=== PATIENT | female | born 1945 | race Caucasian/White ===

== ENCOUNTER 2019-05-25 10:43 | Outpatient (CLI) | payer MEDICARE ==
--- NOTE | 2019-05-25 14:03 | MRI ---
MRI OF THE LEFT KNEE PERFORMED WITHOUT CONTRAST ENHANCEMENT: 05/25/19 HISTORY: Left knee pain. COMPARISON: A plain film examination done 05/18/19 at orthopedist's office. Anterior as well as posterior cruciate ligaments are intact. The lateral meniscus has a normal shape and appearance. There is minimal free edge blunting to the sivakumar dy of the medial meniscus. Medial and lateral collateral ligaments and iliotibial band regions appear unremarkable. The patellar articular cartilage shows some fairly pronounced articular cartilage loss involving the more superior portions of the medial as well as lateral facets but also moderate articular cartilage loss inferiorly. The medial and lateral patellar retinaculum and quadriceps and patellar tendons are normal. There are three ossified bodies seen along the anterior margin of the lateral compartment of the knee . All of these measure approximately 1 cm in size. One of these appears to have an osteophytic attach ment on the more anterior aspect of the lateral tibial plateau. These are very faintly visualized on the plain film examination. There is some other smaller articular bodies seen. There is minimal thinn ing to the articular cartilage of the lateral femoral condyle. A benign appearing bone cyst incidentally noted within the fibula. IMPRESSION: 1. No evidence of any acute meniscal or cruciate ligament injury. 2. Some prominent ossified body seen along the anterior margin of the lateral tibial plateau. T hese are in the 1 cm size range. 3. Marked arthritic changes of the patellofemoral joint space, also small articular bodies and s mall joint effusion noted. POS: [facility]
== END 2019-05-25 10:44 | disposition home or self-care (01) ==
LOC: TBSIIMAG 10:43
PROVIDERS: ATTEND Orthopaedic Surgery
DX: S83.242A Other tear of medial meniscus, current injury, left knee, initial encounter (principal); M17.12 Unilateral primary osteoarthritis, left knee; M25.462 Effusion, left knee

== ENCOUNTER 2019-06-09 09:32 | Outpatient (CLI) | payer MEDICARE ==
[2019-06-09 12:49] LABS: #Basophils 0.1 thou/uL (0.0-0.2); #Eosinphils 0.3 thou/uL (0.0-0.7); #Monocytes 0.8 thou/uL (0.11-0.59); #Neutrophils 5.8 thou/uL (1.40-6.50); %Basophils 0.8 % (0.0-1.0); %Eosinophils 2.9 % (0.0-10.0); %Lymphocytes 30.1 % (21.0-51.0); %Monocytes 8.4 % (0.0-10.0); %Neutrophils 57.9 % (42.0-75.0); Bacteria/HPF None Seen HPF (None Seen); Bilirubin Negative (Negative); Blood, Urine Negative (Negative); Clarity Clear (Clear); Glucose, Urine (Dipstick) Normal (Negative); Hemoglobin 13.8 g/dL (12.0-16.0); Leukocyte Negative Leu/uL (Negative); Mean Corpuscular HGB CONC 33.2 g/dL (32.0-36.0); Mean Corpuscular Hemoglobin 28.1 pg (27.0-31.0); Mean Corpuscular Volume 84.8 fL (78.0-98.0); Mean Platelet Volume 8.1 fL (7.4-10.4); Nitrite Negative (Negative); Platelet Count 246 thou/uL (130-400); Protein, Urine (Dipstick) Negative (Neg-Trace); RBC Distribution Width 14.5 % (11.5-14.5); RBC/HPF 0-3 HPF (0-3); Red Blood Cell (RBC) Count 4.91 mill/uL (4.20-5.40); Squamous Epithelial 0-3 HPF (0-3); Urobilinogen Normal mg/dL (Less than 2); WBC/HPF 0-3 HPF (0-3)
[2019-06-09 12:59] LABS: Prothrombin Time 12.7 SEC (12.0-14.7)
[2019-06-09 13:08] LABS: Anion Gap 16 mmol/L (10-20); BUN (Urea Nitrogen) 11 mg/dL (9.8-20.1); Calc. Creatinine Clearance 0 mL/min (70-130); Calcium 9.7 mg/dL (7.8-10.44); Carbon Dioxide 30 mmol/L (23-31); Chloride 94 mmol/L (98-107); Estimated GFR-MDRD 62; Glucose 106 mg/dL (83-110); Potassium 3.8 mmol/L (3.5-5.1); Sodium 136 mmol/L (136-145)
--- NOTE | 2019-06-09 17:14 | EKG ---
Test Reason : Blood Pressure : / mmHG Vent. Rate : 071 BPM Atrial Rate : 071 BPM P-R Int : 186 ms QRS Dur : 082 ms QT Int : 402 ms P-R-T Axes : 060 052 062 degrees QTc Int : 436 ms Normal sinus rhythm Normal ECG No previous ECGs available Confirmed by DR. Mary Jo DHALIWAL ([id number]) on 06/09/2019 5:13:55 PM Referred By: CARLOS MANUEL Confirmed By:DR. Mary Jo DHALIWAL
== END 2019-06-09 09:33 | disposition home or self-care (01) ==
LOC: LABBT 09:32
PROVIDERS: ATTEND Orthopaedic Surgery
DX: Z01.818 Encounter for other preprocedural examination (principal); M17.12 Unilateral primary osteoarthritis, left knee
CPT/HCPCS: 80048; 81001; 85025; 85610; 87081; 93005; 93010

== ENCOUNTER 2019-06-21 06:35 | Inpatient (IN) | payer MEDICARE ==
[2019-06-09 09:46] VITALS: BMI 36.7
[2019-06-21] MEDS ORDERED: Levofloxacin 500 mg/D5W 100 ml Premix Bag ONE (07:43)
[2019-06-21] MEDS ORDERED: Tranexamic Acid 1,000 MG/10 ML VIAL ONE (07:43)
[2019-06-21] MEDS ORDERED: Sodium Chloride 0.9% 100 ML ONE (07:43)
[2019-06-21] MEDS ORDERED: Vancomycin HCl 1.5 GM in Sodium Chloride 0.9% 250 ML 300 ML IVPB SCH (07:45)
[2019-06-21] MEDS ORDERED: Fentanyl 100 MCG/2 ML VIAL ONE ×2 (08:29→09:27)
[2019-06-21] MEDS ORDERED: Midazolam HCl 2 mg/2 ml Vial ONE (08:29)
[2019-06-21] MEDS ORDERED: traMADol HCl 50 MG TAB PO PRN ×2 (09:17→09:23)
[2019-06-21] MEDS ORDERED: Fentanyl 100 MCG/2 ML VIAL SLOW IVP PRN ×2 (09:17→09:24)
[2019-06-21] MEDS ORDERED: HYDROcodone/Acetaminophen 10/325 mg Tablet PO PRN ×3 (09:17→09:23)
[2019-06-21] MEDS ORDERED: diphenhydrAMINE 25 MG CAP PO PRN (09:17)
[2019-06-21] MEDS ORDERED: Promethazine HCl 25 MG/ML VIAL IM PRN ×2 (09:17→09:23)
[2019-06-21] MEDS ORDERED: Acetaminophen 325 MG TAB PO PRN (09:17)
[2019-06-21] MEDS ORDERED: Zolpidem Tartrate 5 MG TAB PO PRN ×2 (09:17→09:23)
[2019-06-21] MEDS ORDERED: Ondansetron ODT 8 MG TAB PO PRN (09:18)
[2019-06-21] MEDS ORDERED: tiZANidine HCl 4 MG TAB PO PRN (09:18)
[2019-06-21] MEDS ORDERED: Ondansetron PF 4 MG/2 ML Vial IVP PRN (09:23)
[2019-06-21] MEDS ORDERED: Naloxone HCl 0.4 mg/ml Vial ONE (11:25)
[2019-06-21] MEDS ORDERED: Ketorolac Tromethamine 30 MG/ML VIAL ONE (12:24)
--- NOTE | 2019-06-21 12:35 | RAD ---
EXAM: 2 views of the left knee HISTORY: Knee arthroplasty COMPARISON: None FINDINGS: No knee effusion is seen. The patient is status post knee arthroplasty without perihardware lucency or fracture. Air in the soft tissues is from recent surgery. IMPRESSION: Status post knee arthroplasty without evidence of complication.
[2019-06-21] MEDS ORDERED: Acetaminophen 1,000 MG in Premix Bag 1 BAG IVPB SCH (12:45)
[2019-06-21] MEDS ORDERED: Ketorolac Tromethamine 30 MG/ML VIAL IVP SCH (12:45)
[2019-06-21] MEDS ORDERED: Maxitrol 0.1% Opth 5 ML BOT L EYE SCH (13:00)
[2019-06-21] MEDS: Carbidopa/Levodopa 25-100 mg Tablet PO SCH ×3 (16:03→20:45)
[2019-06-21] MEDS: traMADol HCl 50 MG TAB PO PRN (16:03)
--- NOTE | 2019-06-21 16:24 | OP ---
DATE OF PROCEDURE: 06/21/2019 PREOPERATIVE DIAGNOSIS: End-stage tricompartmental osteoarthritis, left knee. POSTOPERATIVE DIAGNOSES: End-stage tricompartmental osteoarthritis, left knee. PROCEDURE PERFORMED: Cemented cruciate-sparing computer-assisted navigated left total knee arthroplasty. SPEECH COMMUNICATION INSTRUCTOR: Abel Webber PA-C ANESTHESIA: General via LMA augmented with indwelling adductor canal peripheral block with a single-shot sciatic nerve block. COMPONENTS USED: [facility] Triathlon size 4 primary cemented cruciate-sparing femoral component, size 3 primary cemented tibial component, 9 mm polyethylene fixed bearing insert, and A29 patellar button. TOURNIQUET TIME: 57 minutes at 300 mmHg. FINDINGS: End-stage severe degenerative tricompartmental disease, [id number] arthrosis, periarticular osteophyte formation, large serous effusion, hypertrophic synovium, changes consistent with degenerative genu varum as well as significant anterior compartment patellofemoral disease. INPUT: 900 mL of crystalloid. OUTPUT: 200 mL of clear yellow urine. ESTIMATED BLOOD LOSS: Less than 100. DRAINS: None. SPECIMENS: None. COMPLICATIONS: None. COUNTS: Correct. INDICATIONS FOR SURGERY: Peggy is a 74-year-old white female, who has had progressive left knee pain and problem with standing and walking for the last 10 to 12 years. She has failed conservative management and elected proceed with total knee arthroplasty as definitive treatment of her pain. PROCEDURE IN DETAIL: After informed consent was obtained in the preoperative holding area, the patient was taken to the operative suite where general anesthesia was induced. Once adequate level of general anesthesia was obtained, the patient was positioned and a well-padded tourniquet was placed around the left proximal thigh. The left lower extremity was then prepped and draped in the usual sterile fashion. Prior to exsanguination, a time-out was called and all members of the surgical team agreed upon site, surgeon, and patient. The extremity was then exsanguinated and the tourniquet was raised. A midline longitudinal incision was then made directly over the patella extending 2 fingerbreadths above the superior pole of the patella and 2 fingerbreadths inferior to the inferior patellar pole of the patella. Deeper subcutaneous layers were dissected sharply and local bleeding was controlled with Bovie electrocautery. A quad tendon longitudinal split was then made sharply and a median parapatellar arthrotomy was carried out both sharp and with Bovie electrocautery, carried down to 1 fingerbreadth medial to the tibial tubercle. The knee was then placed into flexion and the patella was everted nicely, and a copious fat pad ectomy was performed allowing for greater exposure of the tibia. The computer-assisted distal femoral fiducial was then placed and pinned firmly, and the distal femoral cutting guide was pinned firmly into place. The oscillating saw was then used to remove the appropriate amount of bone. The 4-in-1 cutting block was then placed on the distal femur and the oscillating saw was used to remove the appropriate amount of bone off the anterior, posterior, and chamfer cuts. After completion of bone cuts, the anterior cruciate ligament was resected sharply and the posterior cruciate ligament retractor was placed and the tibia was subluxed for better exposure. Partial meniscectomies were carried out, and the tibial computer-assisted fiducial was pinned, and the cutting guide was placed. Oscillating saw was then used to remove the bone, with Hohmann retractors used to take care and protect the collateral ligaments. After the tibial resection was performed, a laminar sleeve turner was placed in between the freshened bone cuts. The knee placed at 90 degrees and further bilateral meniscectomies were carried out, and the curved osteotome and curettage were used to remove any excess bone spurs in the posterior compartment. The trial femoral component, tibial baseplate were placed with the appropriate polyethylene trial insert with an appropriate polyethylene spacer and patellar button. The knee was taken through full range of motion with flexion and extension from 0 to 90 degrees and patellar broach squarely in the trochlea without any squinting or subluxation noted. The knee was also stable to varus and valgus stressing at 0, 15, 45, and 90 degrees of flexion. The drawer was negative. All trial components were then removed and the keel punch was used to provide the appropriate defect in the tibia with a mallet. The freshened bone cuts were copiously irrigated with pulsatile lavage of about 1.5 L to remove all excess debris. The freshened bone cuts were then dried with suction and lap sponge. The knee was placed in flexion and retractors were placed to provide access to all bone cuts. Tobramycin-impregnated methyl methacrylate cement was then placed on the freshened bone cuts and implants which were malleted firmly into place. Curettage and Maybell elevators were used to remove any excess bone cement. The knee was placed into full extension and the patellar button was placed under compression, and the cement was allowed to cure. Once completed, the components were again taken through full range of motion and copious irrigation of the knee was carried out with another liter of normal saline. All components were inspected fully with full range of motion and varus and valgus stressing. There was no laxity noted and full extension was observed clinically. Primary closure was accomplished with #2 interrupted Vicryl stitch of the arthrotomy defect. This was oversewn with a #2 running Quill barbed stitch. The gravitational platelet system was then injected into the arthrotomy prior to closure. The subcutaneous layer was then closed with a running 0 barbed Monocryl stitch and skin closure accomplished with a running subcuticular 3-0 Monocryl barbed Quill stitch and augmented with cement on the skin. Tourniquet was lowered. Good spontaneous return of distal pulses was noted clinically and a sterile dressing was applied to the incision. The procedure was terminated without any complications. The patient was awakened in the operative suite and the patient was taken to the recovery room in stable condition. Job ID: [id number]
[2019-06-21] MEDS: metFORMIN 500 MG TAB PO SCH (18:23)
[2019-06-21] MEDS: Ketorolac Tromethamine 30 MG/ML VIAL IVP SCH ×3 (18:25→23:13)
[2019-06-21] MEDS: Sodium Chloride 0.9% 1,000 ML IV SCH ×2 (18:30→20:37)
[2019-06-21] MEDS ORDERED: Vancomycin HCl 1 GM in Premix Bag 1 BAG IVPB SCH (20:00)
[2019-06-21] MEDS: busPIRone HCl 10 MG TAB PO SCH (20:39)
[2019-06-21] MEDS: Aspirin 81 mg Enteric Coated Tablet PO SCH (20:41)
[2019-06-21] MEDS: Gabapentin 300 MG CAP PO SCH (20:42)
[2019-06-21] MEDS: traZODone HCl 50 MG TAB PO SCH (20:43)
[2019-06-21] MEDS: clonazePAM 1 MG TAB PO SCH (20:44)
[2019-06-21] MEDS ORDERED: LIFITEGRAST 5% EA EYE SCH (21:00)
[2019-06-21] MEDS ORDERED: Bupivacaine PF 0.5% 30 ML VIAL ONE (21:03)
[2019-06-21] MEDS ORDERED: Bupivacaine HCl 0.5%/Epinephrine 1:200,000/PF 30 ml Vial ONE (21:03)
[2019-06-21] MEDS ORDERED: Ropivacaine 0.2% HCl/PF (40 MG/20 ML VIAL) ONE (21:03)
[2019-06-21] MEDS ORDERED: PROPOFOL 200 MG/20 ML VIAL ONE (22:19)
[2019-06-21] MEDS ORDERED: Ondansetron PF 4 MG/2 ML Vial ONE (22:19)
[2019-06-21] MEDS ORDERED: Rocuronium Bromide 10 MG/ML (10ML VIAL) ONE (22:19)
[2019-06-21] MEDS ORDERED: Glycopyrrolate 0.2 MG/ML 5 ML SYRINGE ONE (22:19)
[2019-06-21] MEDS ORDERED: Lidocaine 1% PF 5 ML VIAL ONE (22:19)
[2019-06-21] MEDS: Maxitrol 0.1% Opth Oint 3.5 GM TUBE L EYE SCH ×2 (22:52→23:01)
[2019-06-21] MEDS: Triamcinolone 0.1% Cream 15 GM TUBE TOP SCH (23:16)
[2019-06-22] MEDS: HYDROcodone/Acetaminophen 10/325 mg Tablet PO PRN ×3 (02:39→20:28)
[2019-06-22] MEDS: Levothyroxine Sodium 50 MCG TAB PO SCH (04:28)
[2019-06-22 05:23] LABS: Hemoglobin 11.6 g/dL (12.0-16.0); Mean Corpuscular HGB CONC 33.3 g/dL (32.0-36.0); Mean Corpuscular Hemoglobin 28.4 pg (27.0-31.0); Mean Corpuscular Volume 85.2 fL (78.0-98.0); Mean Platelet Volume 8.4 fL (7.4-10.4); Platelet Count 195 thou/uL (130-400); RBC Distribution Width 14.1 % (11.5-14.5); Red Blood Cell (RBC) Count 4.09 mill/uL (4.20-5.40); White Blood Cell (WBC) Count 8.2 thou/uL (4.8-10.8)
[2019-06-22] MEDS: Sodium Chloride 0.9% 1,000 ML IV SCH ×2 (05:33→15:56)
[2019-06-22] MEDS: Ketorolac Tromethamine 30 MG/ML VIAL IVP SCH ×4 (05:36→23:44)
[2019-06-22] MEDS ORDERED: Insulin Regular 300 UNITS/3 ML VIAL SC PRN ×2 (07:12)
[2019-06-22] MEDS ORDERED: Dextrose 5% in Water 1,000 ML IV PRN (07:12)
[2019-06-22] MEDS ORDERED: Dextrose 50% Abboject 50 ML SYRINGE SLOW IVP PRN (07:12)
[2019-06-22] MEDS: clonazePAM 1 MG TAB PO SCH ×2 (08:03→20:28)
[2019-06-22] MEDS: metFORMIN 500 MG TAB PO SCH ×2 (08:04→17:33)
[2019-06-22] MEDS: Carbidopa/Levodopa 25-100 mg Tablet PO SCH ×4 (08:04→20:26)
[2019-06-22] MEDS: busPIRone HCl 10 MG TAB PO SCH ×2 (08:06→20:27)
[2019-06-22] MEDS: Senokot S 8.6-50 MG TAB PO SCH ×2 (08:07→20:28)
[2019-06-22] MEDS: Aspirin 81 mg Enteric Coated Tablet PO SCH ×2 (08:07→20:27)
[2019-06-22] MEDS: Ferrous Gluconate 324 MG TAB PO SCH ×2 (08:07→17:34)
[2019-06-22] MEDS: Gabapentin 300 MG CAP PO SCH ×2 (08:07→20:28)
[2019-06-22] MEDS: lamoTRIgine 100 MG TAB PO SCH (08:08)
[2019-06-22] MEDS: Hydrochlorothiazide 25 MG TAB PO SCH (08:08)
[2019-06-22] MEDS: Multivitamin W/ Minerals 1 TAB PO SCH (08:08)
[2019-06-22] MEDS: Triamcinolone 0.1% Cream 15 GM TUBE TOP SCH ×2 (08:11→20:33)
[2019-06-22] MEDS ORDERED: Nitroglycerin 0.4 MG TAB (25 Tab Bottle) PO PRN (08:56)
[2019-06-22] MEDS ORDERED: Vortioxetine Hydrobromide [Trintellix] 20 MG PO SCH (09:00)
[2019-06-22] MEDS: Maxitrol 0.1% Opth Oint 3.5 GM TUBE L EYE SCH ×4 (13:23→20:33)
[2019-06-22] MEDS: Ropivacaine HCl/PF 250 ML in Premix Bag 1 BAG NERVE BLCK SCH (14:18)
[2019-06-22] MEDS: LIFITEGRAST 5% EA EYE SCH (14:34)
[2019-06-22] MEDS: Vortioxetine Hydrobromide [Trintellix] 20 MG PO SCH (14:36)
[2019-06-22] MEDS: Ondansetron PF 4 MG/2 ML Vial IVP PRN (15:46)
[2019-06-22] MEDS: traZODone HCl 50 MG TAB PO SCH (20:28)
--- NOTE | 2019-06-22 21:52 | PDOC.HOSPP ---
- Subjective Encounter Date: 06/22/19 Encounter Time: 09:00 Subjective: Patient seen and examined for med mngt. No CP/SOB. Pain controlled. No new complaints. - Objective Vital Signs & Weight: Vital Signs (12 hours) Temp Pulse Resp BP Pulse Ox 06/22/19 15:34 97.8 F 76 20 120/77 93 L Weight Admit Weight 214 lb Weight 214 lb I&O: 06/21/19 06/22/19 06/23/19 06:59 06:59 06:59 Intake Total 1200 Output Total 1450 250 Balance -250 -250 Result Diagrams: 06/22/19 04:47 Additional Labs: Accuchecks 06/22/19 06/22/19 21:18 16:28 POC Glucose 123 H 147 H EKG Reviewed by me: Yes (SR) Hospitalist ROS - Review of Systems Cardiovascular: denies: chest pain, palpitations, orthopnea, paroxysmal noc. dyspnea, edema, light headedness, other Gastrointestinal: denies: nausea, vomiting, abdominal pain, diarrhea, constipation, melena, hematochezia, other - Medication Medications: Active Medications Generic Name Dose Route Start Last Admin Trade Name Freq PRN Reason Stop Dose Admin Hydrocodone Bitart/Acetaminophen 2 tab 06/21/19 09:23 06/22/19 20:28 [place] 10/325 PO 2 tab Q4H PRN Administration PAIN (4-6) Aspirin 81 mg 06/21/19 21:00 06/22/19 20:27 Ecotrin PO 81 mg BID SARAI Administration Buspirone HCl 15 mg 06/21/19 21:00 06/22/19 20:27 Buspar PO 15 mg BID SARAI Administration Carbidopa/Levodopa 1 tab 06/22/19 08:00 06/22/19 20:26 Sinemet 25-100 PO 1 tab 0800,1200,1600,2000 SARAI Administration Clonazepam 1 mg 06/21/19 21:00 06/22/19 20:28 Klonopin PO 1 mg BID SARAI Administration Ferrous Gluconate 324 mg 06/22/19 08:00 06/22/19 17:34 Fergon PO Not Given BID-WM SARAI Gabapentin 300 mg 06/21/19 21:00 06/22/19 20:28 Neurontin PO 300 mg BID SARAI Administration Hydrochlorothiazide 25 mg 06/22/19 09:00 06/22/19 08:08 Hydrochlorothiazide PO 25 mg DAILY SARAI Administration Sodium Chloride 1,000 mls @ 100 mls/hr 06/21/19 09:30 06/22/19 15:56 Normal Saline 0.9% IV Not Given .Q10H SARAI Ropivacaine 250 ml/ Device 250 mls @ 10 mls/hr 06/21/19 09:23 06/22/19 14:18 NERVE BLCK 250 mls INF SARAI Administration Iron/Minerals/Multivitamins 1 tab 06/22/19 09:00 06/22/19 08:08 Theragran M PO 1 tab DAILY SARAI Administration Ketorolac Tromethamine 15 mg 06/21/19 12:00 06/22/19 17:32 Toradol IVP 06/23/19 06:01 15 mg Q6HR SARAI Administration Lamotrigine 100 mg 06/22/19 09:00 06/22/19 08:08 Lamictal PO 100 mg DAILY SARAI Administration Levothyroxine Sodium 50 mcg 06/22/19 06:00 06/22/19 04:28 Synthroid PO 50 mcg 0600 SARAI Administration Metformin HCl 250 mg 06/21/19 17:00 06/22/19 17:33 Glucophage PO 250 mg BID-WM SARAI Administration Neomycin/Polymyxin/Dexamethasone 1 gm 06/21/19 17:00 06/22/19 20:33 Maxitrol 0.1% Opth Ointment L EYE Not Given QID [facility] Ondansetron HCl 4 mg 06/21/19 09:17 06/22/19 15:46 Zofran IVP 4 mg Q6H PRN Administration Nausea/Vomiting Pantoprazole Sodium 40 mg 06/22/19 09:00 06/22/19 08:08 Protonix PO 40 mg DAILY SARAI Administration Vortioxetine 0 each 06/23/19 09:00 06/22/19 14:36 Hydrobromide [ PO 1 each Trintellix] 20 Mg DAILY SARAI Administration Lifitegrast [Xiidra] 0 each 06/22/19 21:00 06/22/19 14:34 5% Ophthalmic Loni EA EYE 1 each BID SARAI Administration Senna/Docusate Sodium 2 tab 06/22/19 09:00 06/22/19 20:28 Senokot S PO 2 tab BID SARAI Administration Sodium Chloride 10 ml 06/21/19 09:17 06/22/19 17:40 Flush - Normal Saline IVF 10 ml PRN PRN Administration Saline Flush Tramadol HCl 50 mg 06/21/19 09:23 06/21/19 16:03 Ultram PO 50 mg Q6H PRN Administration Mild Pain (1-3) Tramadol HCl 100 mg 06/21/19 09:23 06/22/19 04:22 Ultram PO 100 mg Q6H PRN Administration Moderate Pain 4-6 Trazodone HCl 100 mg 06/21/19 21:00 06/22/19 20:28 Desyrel PO 100 mg HS SARAI Administration Triamcinolone Acetonide 0 gm 06/21/19 21:00 06/22/19 20:33 Kenalog 0.1% Cream TOP Not Given BID SARAI - Exam General Appearance: NAD Heart: RRR, no gallops, no rubs Respiratory: CTAB, no wheezes, no rales Gastrointestinal: soft, non-tender, non-distended, normal bowel sounds Extremities: no edema Hosp A/P (1) DM2 (diabetes mellitus, type 2) Status: Chronic Qualifiers: Chronic kidney disease stage: stage 2 (mild) (2) HTN (hypertension) Code(s): I10 - ESSENTIAL (PRIMARY) HYPERTENSION Status: Chronic (3) Parkinson disease Code(s): G20 - PARKINSON'S DISEASE Status: Chronic (4) Obesity (BMI 30-39.9) Code(s): E66.9 - OBESITY, UNSPECIFIED Status: Chronic (5) Hypothyroidism Code(s): E03.9 - HYPOTHYROIDISM, UNSPECIFIED Status: Chronic - Plan PT/OT, DVT proph w/SCDs Cont Sinemet Cont HCTZ Add sliding scale Cont Metformin Cont Levothyroxine Full code DPOA - family
[2019-06-23] MEDS: Sodium Chloride 0.9% 1,000 ML IV SCH ×3 (02:50→20:04)
[2019-06-23] MEDS: HYDROcodone/Acetaminophen 10/325 mg Tablet PO PRN ×2 (03:36→23:36)
[2019-06-23 05:48] LABS: Hemoglobin 11.7 g/dL (12.0-16.0); Mean Corpuscular HGB CONC 32.7 g/dL (32.0-36.0); Mean Corpuscular Hemoglobin 28.2 pg (27.0-31.0); Mean Corpuscular Volume 86.2 fL (78.0-98.0); Mean Platelet Volume 7.8 fL (7.4-10.4); Platelet Count 201 thou/uL (130-400); RBC Distribution Width 14.2 % (11.5-14.5); Red Blood Cell (RBC) Count 4.16 mill/uL (4.20-5.40); White Blood Cell (WBC) Count 10.1 thou/uL (4.8-10.8)
[2019-06-23] MEDS: Levothyroxine Sodium 50 MCG TAB PO SCH (05:53)
[2019-06-23] MEDS: Ketorolac Tromethamine 30 MG/ML VIAL IVP SCH (06:02)
[2019-06-23] MEDS: traMADol HCl 50 MG TAB PO PRN ×2 (06:10→20:32)
[2019-06-23] MEDS: Hydrochlorothiazide 25 MG TAB PO SCH ×2 (08:30→08:36)
[2019-06-23] MEDS: Carbidopa/Levodopa 25-100 mg Tablet PO SCH ×4 (08:31→20:31)
[2019-06-23] MEDS: Vortioxetine Hydrobromide [Trintellix] 20 MG PO SCH (08:31)
[2019-06-23] MEDS: LIFITEGRAST 5% EA EYE SCH ×2 (08:32→20:36)
[2019-06-23] MEDS: Gabapentin 300 MG CAP PO SCH ×2 (08:32→20:33)
[2019-06-23] MEDS: busPIRone HCl 10 MG TAB PO SCH ×2 (08:33→20:33)
[2019-06-23] MEDS: lamoTRIgine 100 MG TAB PO SCH (08:33)
[2019-06-23] MEDS: Senokot S 8.6-50 MG TAB PO SCH ×2 (08:34→20:32)
[2019-06-23] MEDS: clonazePAM 1 MG TAB PO SCH ×2 (08:34→20:32)
[2019-06-23] MEDS: metFORMIN 500 MG TAB PO SCH ×2 (08:34→16:39)
[2019-06-23] MEDS: Ferrous Gluconate 324 MG TAB PO SCH ×2 (08:35→16:29)
[2019-06-23] MEDS: Maxitrol 0.1% Opth Oint 3.5 GM TUBE L EYE SCH ×4 (08:36→20:03)
[2019-06-23] MEDS: Aspirin 81 mg Enteric Coated Tablet PO SCH ×2 (08:36→20:31)
[2019-06-23] MEDS: Multivitamin W/ Minerals 1 TAB PO SCH (08:36)
[2019-06-23] MEDS: Triamcinolone 0.1% Cream 15 GM TUBE TOP SCH ×2 (08:37→20:03)
--- NOTE | 2019-06-23 15:02 | PRG ---
DATE OF SERVICE: 06/23/2019 SUBJECTIVE: The patient is seen and examined at the bedside. Her is present in the room during my visit. She complains about being drowsy and feeling weak. OBJECTIVE: VITAL SIGNS: Blood pressure is 93/54, pulse is 60, temperature is 97.6, respirations 20, and O2 saturation is 91% on 2 L by nasal cannula. HEENT: Her head is atraumatic and normocephalic. Eyes are PERRLA. Sclerae are palish. Oral mucosa is moist. NECK: Supple. LUNGS: Clear. HEART: S1 and S2, normal. ABDOMEN: Soft, nontender, nondistended. EXTREMITIES: Left knee status post total knee replacement with some swelling and mild erythema present around the knee, especially in the medial aspect. NEUROLOGIC: She follows my commands. She falls asleep during my visit. LABORATORY DATA: Showed white count of 10.1, hemoglobin 11.7, hematocrit 35.8. The rest of CBC within normal limits. IMPRESSION: 1. Hypotension. We will give her bolus of normal saline at 500 mL x1. We are going to stop her HCTZ. 2. Drowsiness, secondary to her pain medications most likely. 3. Chronic constipation. We will try to use some bowel regimen to prevent further deterioration of the problem. 4. Hypertension per history. 5. Parkinson disease. 6. Hypothyroidism. PLAN: To give IV bolus of normal saline 500 mL. Continue her other medications. Start her on bowel regimen, and get her BMP. Job ID: [id number]
[2019-06-23 16:58] LABS: Anion Gap 7 mmol/L (10-20); BUN (Urea Nitrogen) 7 mg/dL (9.8-20.1); Calc. Creatinine Clearance 105 mL/min (70-130); Calcium 8.8 mg/dL (7.8-10.44); Carbon Dioxide 34 mmol/L (23-31); Chloride 95 mmol/L (98-107); Estimated GFR-MDRD 77; Glucose 130 mg/dL (83-110); Potassium 3.6 mmol/L (3.5-5.1); Sodium 132 mmol/L (136-145)
[2019-06-23] MEDS: Ropivacaine HCl/PF 250 ML in Premix Bag 1 BAG NERVE BLCK SCH (17:09)
[2019-06-23] MEDS ORDERED: Sodium Chloride 0.9% 500 ML IVPB SCH (17:30)
[2019-06-23] MEDS: traZODone HCl 50 MG TAB PO SCH (23:35)
[2019-06-23] MEDS: Ondansetron PF 4 MG/2 ML Vial IVP PRN (23:35)
[2019-06-24 05:47] LABS: Hemoglobin 10.9 g/dL (12.0-16.0); Mean Corpuscular HGB CONC 32.7 g/dL (32.0-36.0); Mean Corpuscular Volume 85.6 fL (78.0-98.0); Mean Platelet Volume 8.6 fL (7.4-10.4); Platelet Count 186 thou/uL (130-400); Red Blood Cell (RBC) Count 3.91 mill/uL (4.20-5.40); White Blood Cell (WBC) Count 7.8 thou/uL (4.8-10.8)
[2019-06-24] MEDS: Levothyroxine Sodium 50 MCG TAB PO SCH (06:53)
[2019-06-24] MEDS: HYDROcodone/Acetaminophen 10/325 mg Tablet PO PRN ×2 (06:53→11:21)
[2019-06-24] MEDS: Maxitrol 0.1% Opth Oint 3.5 GM TUBE L EYE SCH ×3 (08:41→13:14)
[2019-06-24] MEDS: busPIRone HCl 10 MG TAB PO SCH (08:42)
[2019-06-24] MEDS: Gabapentin 300 MG CAP PO SCH ×2 (08:43→08:51)
[2019-06-24] MEDS: Multivitamin W/ Minerals 1 TAB PO SCH ×2 (08:43→08:52)
[2019-06-24] MEDS: Senokot S 8.6-50 MG TAB PO SCH (08:43)
[2019-06-24] MEDS: clonazePAM 1 MG TAB PO SCH (08:44)
[2019-06-24] MEDS: Carbidopa/Levodopa 25-100 mg Tablet PO SCH ×2 (08:44→11:21)
[2019-06-24] MEDS: lamoTRIgine 100 MG TAB PO SCH ×2 (08:44→08:51)
[2019-06-24] MEDS: metFORMIN 500 MG TAB PO SCH (08:45)
[2019-06-24] MEDS: Sodium Chloride 0.9% 1,000 ML IV SCH (08:46)
[2019-06-24] MEDS: Ferrous Gluconate 324 MG TAB PO SCH ×3 (08:46→09:08)
[2019-06-24] MEDS: Aspirin 81 mg Enteric Coated Tablet PO SCH ×2 (08:47→08:51)
[2019-06-24] MEDS: Vortioxetine Hydrobromide [Trintellix] 20 MG PO SCH (08:50)
[2019-06-24] MEDS: LIFITEGRAST 5% EA EYE SCH (08:51)
[2019-06-24] MEDS: Triamcinolone 0.1% Cream 15 GM TUBE TOP SCH (09:06)
--- NOTE | 2019-06-24 10:47 | PRG ---
DATE OF SERVICE: 06/24/2019 SUBJECTIVE: The patient is seen and examined at the bedside. She feels significantly better today. She is not as drowsy as she was yesterday, and her blood pressure is improved. Her appetite is fair. She just did have physical therapy session. OBJECTIVE: VITAL SIGNS: Blood pressure is 104/67, pulse is 72, temperature is 97.7, respirations 18, O2 saturation is 93% on 1 L via nasal cannula. HEENT: Head is atraumatic and normocephalic. Eyes are PERRLA. Sclerae are nonicteric. Oral mucosa is moist. NECK: Supple. LUNGS: Clear. HEART: S1 and S2 normal. ABDOMEN: Soft, nontender, nondistended. EXTREMITIES: Left knee area not examined today. NEUROLOGIC: She is alert and oriented x4. There is no any motor or sensory deficits. LABORATORY DATA: Labs showed white count of 7.8, hemoglobin 10.9, hematocrit 33.5, platelet count 186,000. IMPRESSION: 1. Hypotension, resolved after IV fluid bolus 500 mL. 2. Drowsiness secondary to multiple medications use. The patient was advised to go back to her primary care physician and try to decrease the number of centrally acting pills. She is on multiple of them and she is advised to go to her primary care physician and work on that. 3. Chronic constipation. The patient is on the bowel regimen. We will start her on MiraLAX too. 4. Hypertension per history. 5. Parkinson disease. 6. Hypothyroidism, on replacement. PLAN: Plan is to continue her current regimen and continue PT and continue Accu-Cheks as before, and check her CBC and BMP tomorrow morning if she is still here. Job ID: [id number]
[2019-06-24] MEDS: Ondansetron PF 4 MG/2 ML Vial IVP PRN (13:10)
[2019-06-24 13:53] VITALS: BP 121/58; TEMP 97.8
[2019-06-25] MEDS ORDERED: Polyethylene Glycol 3350 17 GM Packet PO SCH (09:00)
== END 2019-06-24 14:22 | disposition home or self-care (01) | DRG 470 ==
LOC: SDC 06:35 → SJJU 09:17 → SDC 06-24 08:23
PROVIDERS: ADMIT Orthopaedic Surgery; ATTEND Orthopaedic Surgery
PROC: 0SRD0J9 Replacement of Left Knee Joint with Synthetic Substitute, Cemented, Open Approach (ICD-10-PCS; principal; 2019-06-21)
PROC: 8E0YXBZ Computer Assisted Procedure of Lower Extremity (ICD-10-PCS; 2019-06-21)
DX: M17.12 Unilateral primary osteoarthritis, left knee (principal); G20 Parkinson's disease; E11.9 Type 2 diabetes mellitus without complications; E03.9 Hypothyroidism, unspecified; I10 Essential (primary) hypertension; E66.9 Obesity, unspecified; I95.9 Hypotension, unspecified; K59.09 Other constipation; R40.0 Somnolence; Z79.84 Long term (current) use of oral hypoglycemic drugs; Z79.899 Other long term (current) drug therapy; Z88.0 Allergy status to penicillin; Z88.5 Allergy status to narcotic agent; Z88.8 Allergy status to other drugs, medicaments and biological substances; Z68.36 Body mass index [BMI] 36.0-36.9, adult
CPT/HCPCS: 36415; 36416; 80048; 85027; 94760; C1713; C1776; J0131; J0670; J1885; J1956; J2001; J2250; J2310; J2405; J2704; J2795; J3010; J3370; J3490; J7050; S0020

== ENCOUNTER 2019-07-01 13:46 | Emergency (ER) | payer MEDICARE | END 2019-07-01 14:39 | disposition home or self-care (01) | LOC: ERS 13:46 | DX: G89.18 Other acute postprocedural pain (principal); M25.562 Pain in left knee; E11.9 Type 2 diabetes mellitus without complications; E03.9 Hypothyroidism, unspecified; I10 Essential (primary) hypertension; F32.9 Major depressive disorder, single episode, unspecified | CPT/HCPCS: 99283 ==

== ENCOUNTER 2019-07-25 11:38 | Inpatient (IN) | payer MEDICARE ==
[2019-07-25 12:15] LABS: #Eosinphils 0.5 thou/uL (0.0-0.7); #Lymphocytes 3.3 thou/uL (1.20-3.40); #Monocytes 0.7 thou/uL (0.11-0.59); #Neutrophils 2.6 thou/uL (1.40-6.50); %Basophils 0.5 % (0.0-1.0); %Eosinophils 6.9 % (0.0-10.0); %Lymphocytes 46.7 % (21.0-51.0); %Monocytes 9.8 % (0.0-10.0); %Neutrophils 36.1 % (42.0-75.0); Hemoglobin 12.3 g/dL (12.0-16.0); Mean Corpuscular HGB CONC 32.3 g/dL (32.0-36.0); Mean Corpuscular Hemoglobin 27.7 pg (27.0-31.0); Mean Corpuscular Volume 85.9 fL (78.0-98.0); Mean Platelet Volume 8.6 fL (7.4-10.4); Platelet Count 180 thou/uL (130-400); RBC Distribution Width 14.3 % (11.5-14.5); Red Blood Cell (RBC) Count 4.44 mill/uL (4.20-5.40); White Blood Cell (WBC) Count 7.1 thou/uL (4.8-10.8)
[2019-07-25] MEDS ORDERED: ISOVUE-370 76%-LOCM 1 ML ONE (12:22)
[2019-07-25] MEDS ORDERED: EPINEPHrine 1 MG/ML AMP ONE (12:37)
[2019-07-25] MEDS ORDERED: EPINEPHrine 1 MG/10 ML Abboject SYRINGE ONE (12:38)
[2019-07-25 12:39] LABS: ALT (SGPT) Less than 7 U/L (8-55); AST (SGOT) 23 U/L (5-34); Albumin 3.8 g/dL (3.4-4.8); Alkaline Phosphatase 91 U/L (40-110); Anion Gap 10 mmol/L (10-20); BUN (Urea Nitrogen) 11 mg/dL (9.8-20.1); Bilirubin, Total 0.4 mg/dL (0.2-1.2); CK (CPK) 56 U/L (29-168); Calc. Creatinine Clearance 0 mL/min (70-130); Calcium 8.9 mg/dL (7.8-10.44); Carbon Dioxide 31 mmol/L (23-31); Chloride 99 mmol/L (98-107); Estimated GFR-MDRD 59; Glucose 120 mg/dL (83-110); Potassium 3.7 mmol/L (3.5-5.1); Protein, Total 5.8 g/dL (6.0-8.3); Sodium 136 mmol/L (136-145)
--- NOTE | 2019-07-25 12:47 | ULT ---
Venous duplex sonogram left lower extremity HISTORY: Left leg pain and edema. FINDINGS: The left common femoral vein and greater saphenous junction were evaluated along with the f emoral, deep femoral, popliteal, and posterior tibial veins. There is good color and spectral Doppler flow, compression, and augmentation. IMPRESSION: No sonographic evidence of DVT within the left lower extremity.
--- NOTE | 2019-07-25 12:48 | RAD ---
XR Chest 1 View Portable History: Hypotension nausea and vomiting Comparison: None. Findings: Moderate elevation right hemidiaphragm is likely chronic. No confluent airspace consolidati on, pneumothorax, or effusion. Old left-sided rib fractures. Impression: Chronic findings. No acute intrathoracic abnormality.
[2019-07-25] MEDS ORDERED: Acetaminophen 500 MG TAB ONE (13:58)
--- NOTE | 2019-07-25 14:09 | CT ---
CT ANGIOGRAM CHEST: 07/25/2019 HISTORY: Hypotension with nausea and vomiting. COMPARISON: None. TECHNIQUE: Axial CT imaging is obtained at 2.5 mm intervals through the chest with IV contrast using CT angiogra m protocol. Coronal and oblique sagittal 3D reformatted imaging obtained. FINDINGS: Limited assessment of the upper abdomen demonstrates no acute findings. There is prominent elevation of the right hemidiaphragm. No mediastinal, axillary or hilar lymphadenopathy is appreciated. No pulmonary arterial filling defect is seen to suggest the presence of acute pulmonary arterial embo lism. No pleural, pericardial or mediastinal fluid is evident. No endobronchial lesion is seen. There is mild atherosclerotic calcification of the aortic arch. No pneumothorax noted on either side. No discrete dominant pulmonary parenchymal mass lesion or nodule is noted on either side. No acute osseous abnormality. IMPRESSION: No evidence for pulmonary artery embolism. POS: [facility]AN[facility]
[2019-07-25 15:32] LABS: Troponin I Less than 0.010 ng/mL (< 0.028)
[2019-07-25] MEDS ORDERED: Acetaminophen 325 MG TAB PO PRN (15:45)
[2019-07-25] MEDS ORDERED: Ondansetron ODT 4 MG TAB SL PRN (15:45)
[2019-07-25] MEDS ORDERED: Sodium Chloride 0.9% 1,000 ML IV SCH (15:45)
[2019-07-25] MEDS ORDERED: Ondansetron PF 4 MG/2 ML Vial IVP PRN ×2 (15:45→18:02)
[2019-07-25 16:33] VITALS: BMI 37.5
[2019-07-25 16:37] LABS: Lactic Acid 1.4 mmol/L (0.5-2.2)
[2019-07-25] MEDS ORDERED: Dextrose 5% in Water 1,000 ML IV PRN (18:02)
[2019-07-25] MEDS ORDERED: Ondansetron ODT 8 MG TAB PO PRN (18:02)
[2019-07-25] MEDS ORDERED: hydrOXYzine 10 MG TAB PO PRN (18:02)
[2019-07-25] MEDS ORDERED: Dextrose 50% Abboject 50 ML SYRINGE SLOW IVP PRN (18:02)
[2019-07-25] MEDS ORDERED: HumaLOG 300 UNITS/3 ML VIAL SC PRN ×2 (18:02)
[2019-07-25 18:26] LABS: Troponin I Less than 0.010 ng/mL (< 0.028)
[2019-07-25] MEDS: Acetaminophen 500 MG TAB PO PRN (20:49)
[2019-07-25] MEDS: traZODone HCl 50 MG TAB PO SCH (20:50)
[2019-07-25] MEDS: Gabapentin 300 MG CAP PO SCH (20:50)
[2019-07-25] MEDS: Carbidopa/Levodopa 25-100 mg Tablet PO SCH (20:50)
[2019-07-25] MEDS: busPIRone HCl 5 MG TAB PO SCH (20:50)
[2019-07-25] MEDS: Famotidine 20 MG TAB PO SCH (20:50)
[2019-07-25] MEDS: clonazePAM 1 MG TAB PO SCH (20:51)
[2019-07-25] MEDS: Triamcinolone 0.1% Cream 15 GM TUBE TOP SCH (20:51)
[2019-07-25] MEDS ORDERED: LIFITEGRAST 5% FS SCH (21:00)
[2019-07-25] MEDS ORDERED: Maxitrol 0.1% Opth 5 ML BOT L EYE SCH (21:00)
--- NOTE | 2019-07-25 21:49 | HP ---
PRIMARY CARE PROVIDER: Dr. Sonu Couch at [facility]. CHIEF COMPLAINT: Nausea, vomiting, and dehydration. HISTORY OF PRESENT ILLNESS: This is a 74-year-old female, who presented to [facility] complaining of nausea, vomiting, general fatigue and hypotension discovered by her home health service nurse. The patient states the symptoms began approximately 3 days previous and was unable to hold down any significant liquid or water. The patient states her oral intake as well as food has diminished over the last 72 hours. The patient denies any recent travel history exposure or family members with similar symptoms. The patient states she has had similar episodes intermittently in the past resolving with IV fluids or home oral intake. The patient states she tried to increase her water intake and Gatorade, but was unable to hold the fluids down. The patient denied any fever, shortness of breath, chest pain, left arm discomfort, unilateral weakness. The patient does state she underwent a left total knee arthroplasty in May 2019, has been receiving home therapy. The patient also admits to a plethora of medications related to her depression as well as pain and peripheral neuropathy. The patient states she was placed on Vortioxetine in January 2019 by her primary neurologist. The patient has noted with the medication as a prominent side effect. The patient states she takes Zofran to mitigate the nausea and assist with taking her other chronic medications. In the emergency room, the patient underwent general evaluation including CT angiogram of the chest, portable chest ray imaging and vascular ultrasound of the left lower extremity. All with negative results. The patient was noted with blood pressure of 81/57 at home with similar readings showing 76/31 and 70/56 in the emergency room. The patient received aggressive IV fluid hydration as well as 0.1 mg of epinephrine IV push. The patient's blood pressure improved with supportive management and hydration and patient was transferred to the medical floor for further monitoring. PAST MEDICAL HISTORY: 1. Parkinson's. 2. Diabetes mellitus type 2. 3. Hypothyroidism. 4. Hypertension. 5. Severe depression. 6. Anxiety. 7. Osteoarthritis. PAST SURGICAL HISTORY: 1. Status post left total knee arthroplasty. 2. Status post right ankle surgery. 3. Status post cholecystectomy. CURRENT MEDICATIONS: 1. Acetaminophen with codeine 30/300 mg 1 tablet p.o. q.6 hours p.r.n. pain. 2. Clonazepam 1 mg p.o. b.i.d. 3. BuSpar 15 mg p.o. b.i.d. 4. Carbidopa/levodopa 25/100 mg 1 tablet p.o. q.4 hours. 5. Gabapentin 300 mg p.o. b.i.d. 6. Hydrochlorothiazide 25 mg p.o. daily. 7. Hydroxyzine 10 mg p.o. at bedtime p.r.n. 8. Lamotrigine 100 mg p.o. daily. 9. Levothyroxine 50 mcg p.o. daily. 10. Lifitegrast 1 drop to each eye b.i.d. 11. Amitiza 24 mcg p.o. b.i.d. 12. Metformin 500 mg p.o. daily. 13. Maxitrol ophthalmic suspension 1-2 drops in the left eye t.i.d. 14. Zofran 8 mg p.o. q.8 hours p.r.n. nausea. 15. Protonix 40 mg p.o. daily. 16. Zanaflex 4-8 mg p.o. b.i.d. 17. Trazodone 100 mg p.o. at bedtime. 18. Vortioxetine 20 mg p.o. daily. ALLERGIES: BUTORPHANOL, AMPHETAMINE, DEXTROAMPHETAMINE, MORPHINE, PENICILLIN. FAMILY HISTORY: Father after diagnosis of unknown type of cancer. SOCIAL HISTORY: The patient resides in [place], [place]. . No current alcohol, tobacco, or illicit drug use. REVIEW OF SYSTEMS: CONSTITUTIONAL: Negative for weight loss or gain, ability to conduct usual activities. SKIN: Negative for rash, itching. EYES: Negative for double vision, pain. ENT/MOUTH: Negative for nose bleeding, neck stiffness, pain, tenderness. CARDIOVASCULAR: Negative for palpitations, dyspnea on exertion, orthopnea. RESPIRATORY: Negative for shortness of breath, wheezing, cough, hemoptysis, fever or night sweats. GASTROINTESTINAL: Negative for poor appetite, abdominal pain, heartburn, nausea, vomiting, constipation, or diarrhea. GENITOURINARY: Negative for urgency, frequency, dysuria, nocturia. MUSCULOSKELETAL: Negative for pain, swelling. NEUROLOGIC/PSYCHIATRIC: Negative for anxiety, depression. ALLERGY/IMMUNOLOGIC: Negative for skin rash, bleeding tendency. Otherwise negative except as stated per HPI. PHYSICAL EXAMINATION: VITAL SIGNS: Currently, blood pressure 121/74, pulse 63, respiratory rate 18, temperature 97.3 degrees Fahrenheit, O2 saturation 95% on room air. GENERAL APPEARANCE: This is a 74-year-old female, alert and oriented x3, pleasant, responsive, in no acute distress. HEENT: Pupils are equal, round, reactive to light and accommodation. Extraocular muscles are intact. No scleral icterus. No conjunctival injection. Nares are patent. OP is clear. Oral mucosa dry appearing. NECK: Supple. No cervical adenopathy. No thyromegaly. No carotid bruits. No JVD appreciated. Cervical spine with full active and passive range of motion. No meningeal signs noted. CHEST: Lungs are clear to auscultation bilaterally. CARDIOVASCULAR: S1, S2 without noted murmur, rub, or gallop. ABDOMEN: Obese, soft, nontender, and nondistended. Bowel sounds are positive in all 4 quadrants. There is no hepatosplenomegaly. No abdominal bruits. No rebound or guarding appreciated. EXTREMITIES: Warm and dry with fair turgor. No clubbing, cyanosis, or asymmetric edema appreciated. Pulses are palpable distally at the dorsalis pedis, posterior tibial, and popliteal arteries bilaterally. Capillary refill less than 2 seconds. Poor skin turgor noted. NEUROLOGIC: Cranial nerves 2 through 12 are grossly intact. No focal or lateralizing signs appreciated. PERTINENT LABORATORY AND X-RAY FINDINGS: Basic metabolic profile sodium 136, potassium 3.7, chloride 99, CO2 of 31, BUN 11, creatinine 0.94, estimated GFR of 59, glucose 120. Lactic acid level ranged between 1.4 to 2.5, calcium 8.9. Troponin I negative x2. Albumin 3.8. CBC showed a white blood cell count of 7.1, hemoglobin 12.3, hematocrit 38, platelet count 180, with 36% neutrophils. CT angiogram of the chest dated 07/25/2019, showed no evidence for pulmonary embolus. Portable chest x-ray dated 07/25/2019, showed no acute cardiopulmonary process. Left lower extremity vascular ultrasound dated 07/25/2019, showed no evidence for DVT. EKG dated 07/25/2019, by my interpretation shows sinus bradycardia with heart rates in the 50s. Normal R-wave progression noted in the precordial corneal leads. Normal axis. No acute ST-T wave changes appreciated. ASSESSMENT/PLAN: 1. Hypotension. Suspect multifactorial including volume depletion secondary to #2. 2. Improved after aggressive IV fluid hydration. Continue intravenous normal saline at 100 mL/hour. Avoid antihypertensive medications. Serial blood pressure monitoring. 3. Nausea and vomiting. Suspect multifactorial including polypharmacy with attention to the Vortioxetine. Prominent side effects include nausea with this antidepressant. May consider modification to current dosing or transitioning to another agent. Also consideration for polypharmacy contributing to patient's nausea and vomiting given multiple psychotropics and pain medications. Hold metformin x24 hours. Continue antiemetics with Zofran 4 mg IV q.6 hours p.r.n. 4. Acute kidney injury secondarily to #2. Continue IV fluids as outlined previously. Avoid nephrotoxic agents and limit contrast exposure. Repeat creatinine in the a.m. 5. Lactic acidosis, secondarily to severe dehydration. Continue IV fluids and monitor clinical response. 6. Diabetes mellitus type 2. Insulin sliding scale for reflexive coverage. Hold metformin x24 hours. ADA diet. Serial Accu-Cheks before meals and at bedtime. 7. Depression. Continue home regimen and monitor clinical response. The patient will need to follow up with her outpatient psychiatrist for consideration to modification of current regimen to include Vortioxetine. 8. Prophylaxis. Sequential compression devices while in bed. Protonix 40 mg p.o. daily. CODE STATUS: Full. Surrogate medical decision maker is the patient's spouse. Job ID: [id number]
[2019-07-25] MEDS: Neomycin-Polymyxin-Hc 7.5 ML BOT L EYE SCH (22:14)
[2019-07-25] MEDS: Sodium Chloride 0.9% 1,000 ML IV SCH (23:47)
[2019-07-26] MEDS: Carbidopa/Levodopa 25-100 mg Tablet PO SCH ×6 (01:36→19:30)
[2019-07-26] MEDS: Acetaminophen 500 MG TAB PO PRN ×2 (04:17→22:51)
[2019-07-26 05:09] LABS: Anion Gap 11 mmol/L (10-20); BUN (Urea Nitrogen) 7 mg/dL (9.8-20.1); Calc. Creatinine Clearance 106 mL/min (70-130); Calcium 8.6 mg/dL (7.8-10.44); Carbon Dioxide 28 mmol/L (23-31); Chloride 106 mmol/L (98-107); Estimated GFR-MDRD 76; Glucose 101 mg/dL (83-110); Potassium 3.8 mmol/L (3.5-5.1); Sodium 141 mmol/L (136-145)
[2019-07-26 05:35] LABS: Band 3 % (5-11); Eosinophils 7 % (0-10); Hemoglobin 11.2 g/dL (12.0-16.0); Lymphocytes 43 % (21-51); MDiff Complete? YES; Mean Corpuscular HGB CONC 31.8 g/dL (32.0-36.0); Mean Corpuscular Volume 84.7 fL (78.0-98.0); Monocytes 2 % (0-10); Neutrophil 45 % (42-75); Ovalocytes SLIGHT = 2-5 cells (100X) (0-1/hpf); Platelet Count 148 thou/uL (130-400); Red Blood Cell (RBC) Count 4.14 mill/uL (4.20-5.40); White Blood Cell (WBC) Count 4.5 thou/uL (4.8-10.8)
[2019-07-26] MEDS: Sodium Chloride 0.9% 1,000 ML IV SCH ×2 (05:59→13:44)
[2019-07-26] MEDS: Levothyroxine Sodium 50 MCG TAB PO SCH (05:59)
[2019-07-26] MEDS ORDERED: VORTIOXETINE HYDROBROMIDE 20 MG PO SCH (09:00)
[2019-07-26] MEDS ORDERED: FLU VACC TS2019-20(65YR UP)/PF 180 MCG/0.5 ML SYRINGE IM ONE (09:00)
[2019-07-26] MEDS ORDERED: Prevnar 13-Val Conj/PF 0.5 ML SYRINGE IM ONE (09:00)
[2019-07-26] MEDS: Famotidine 20 MG TAB PO SCH ×2 (10:14→20:32)
[2019-07-26] MEDS: Lubiprostone 24 MCG CAP PO SCH ×2 (10:14→19:27)
[2019-07-26] MEDS: lamoTRIgine 100 MG TAB PO SCH (10:14)
[2019-07-26] MEDS: busPIRone HCl 5 MG TAB PO SCH ×2 (10:14→20:29)
[2019-07-26] MEDS: clonazePAM 1 MG TAB PO SCH ×2 (10:15→20:32)
[2019-07-26] MEDS: Loratadine/Pseudoephedrine 10/240 mg Tablet PO SCH (10:15)
[2019-07-26] MEDS: Gabapentin 300 MG CAP PO SCH ×2 (10:15→20:32)
[2019-07-26] MEDS: Neomycin-Polymyxin-Hc 7.5 ML BOT L EYE SCH ×3 (10:16→20:39)
[2019-07-26] MEDS: Ondansetron ODT 4 MG TAB PO PRN (10:26)
[2019-07-26] MEDS: Triamcinolone 0.1% Cream 15 GM TUBE TOP SCH ×2 (10:41→20:34)
[2019-07-26] MEDS: Acetaminophen/Codeine 30-300mg Tablet PO PRN (13:40)
--- NOTE | 2019-07-26 17:06 | PDOC.HOSPP ---
- Subjective Encounter Date: 07/26/19 Subjective: Pt seen feels better but still feels weak and tired and c/o leg pains and has mild dizziness on standing - Objective Vital Signs & Weight: Vital Signs (12 hours) Temp Pulse Resp BP Pulse Ox 07/26/19 16:00 98.0 F 83 18 158/88 H 94 L 07/26/19 11:28 98.5 F 75 18 141/80 H 94 L 07/26/19 08:00 93 L 07/26/19 07:50 98.1 F 58 L 18 142/77 H 93 L Weight Weight 219 lb I&O: 07/25/19 07/26/19 07/27/19 06:59 06:59 06:59 Intake Total 2370 Output Total 3650 Balance -1280 Result Diagrams: 07/26/19 04:21 07/26/19 04:21 Additional Labs: Accuchecks 07/26/19 07/26/19 07/26/19 16:17 11:31 05:04 POC Glucose 112 H 118 H 97 07/25/19 21:02 POC Glucose 118 H Hospitalist ROS - Review of Systems Constitutional: reports: weakness. denies: fever Eyes: denies: pain ENT: denies: ear pain Respiratory: denies: cough Cardiovascular: denies: chest pain Gastrointestinal: denies: nausea Musculoskeletal: reports: leg pain Skin: denies: rash Neurological: denies: weakness - Medication Medications: Active Medications Generic Name Dose Route Start Last Admin Trade Name Freq PRN Reason Stop Dose Admin Acetaminophen 1,000 mg 07/25/19 18:02 07/26/19 04:17 Tylenol PO 1,000 mg Q6H PRN Administration Mild Pain (1-3) Acetaminophen/Codeine Phosphate 1 tab 07/25/19 18:02 07/26/19 13:40 Tylenol #3 PO 1 tab DAILYPRN PRN Administration Moderate Pain (4-6) Buspirone HCl 15 mg 07/25/19 21:00 07/26/19 10:14 Buspar PO 15 mg BID SARAI Administration Carbidopa/Levodopa 1 tab 07/25/19 21:00 07/26/19 13:40 Sinemet 25-100 PO 1 tab Q4HR SARAI Administration Clonazepam 1 mg 07/25/19 21:00 07/26/19 10:15 Klonopin PO 1 mg BID SARAI Administration Famotidine 20 mg 07/25/19 21:00 07/26/19 10:14 Pepcid PO 20 mg BID SARAI Administration Gabapentin 300 mg 07/25/19 21:00 07/26/19 10:15 Neurontin PO 300 mg BID SARAI Administration Lamotrigine 100 mg 07/26/19 09:00 07/26/19 10:14 Lamictal PO 100 mg DAILY SARAI Administration Levothyroxine Sodium 50 mcg 07/26/19 06:00 07/26/19 05:59 Synthroid PO 50 mcg 0600 SARAI Administration Loratadine/Pseudoephedrine Sulfate 1 tab 07/26/19 09:00 07/26/19 10:15 Claritin-D 24 Hour PO 1 tab DAILY SARAI Administration Lubiprostone 24 mcg 07/26/19 08:00 07/26/19 10:14 Amitiza PO 24 mcg BID-WM SARAI Administration Neomycin/Polymyxin/Hydrocortisone 1 - 2 drop 07/25/19 21:00 07/26/19 13:43 Cortisporin Opth L EYE Not Given TID [facility] Ondansetron HCl 4 mg 07/25/19 18:02 07/26/19 10:26 Zofran Odt PO 4 mg Q6H PRN Administration Nausea/Vomiting Pantoprazole Sodium 40 mg 07/26/19 09:00 07/26/19 10:14 Protonix PO 40 mg DAILY SARAI Administration Trazodone HCl 100 mg 07/25/19 21:00 07/25/19 20:50 Desyrel PO 100 mg HS SARAI Administration Triamcinolone Acetonide 0 gm 07/25/19 21:00 07/26/19 10:41 Kenalog 0.1% Cream TOP 1 applic BID SARAI Administration - Exam General Appearance: awake alert Eye: anicteric sclera ENT: normocephalic atraumatic Neck: supple Heart: no murmur Respiratory: CTAB Gastrointestinal: soft Extremities: no cyanosis Skin: normal turgor Neurological: cranial nerve grossly intact Psychiatric: normal affect Hosp A/P - Plan ( Hypotension Possible multifactorial Dehydration , poly pharmacy related improved , Bp stable today No evidence of sepsis Nauea Vomiting Better and improved tolerating diet CELINE Better and Improving DM Continue monitor blood sugar Depression Continue home meds Recent Left Knee replacement Pt advised precautious use of pain meds and may contribute to low BP DVT/GI Prophyalxis Marked Functional Decline Continue PT evaluation Discussed with pt and family member in detail
[2019-07-26] MEDS: traZODone HCl 50 MG TAB PO SCH (20:30)
[2019-07-27] MEDS: Carbidopa/Levodopa 25-100 mg Tablet PO SCH ×5 (00:49→17:49)
[2019-07-27] MEDS ORDERED: Melatonin 3 MG TAB PO SCH ×2 (02:45→21:00)
[2019-07-27 05:37] LABS: #Eosinphils 0.3 thou/uL (0.0-0.7); #Lymphocytes 2.2 thou/uL (1.20-3.40); #Monocytes 0.5 thou/uL (0.11-0.59); #Neutrophils 3.2 thou/uL (1.40-6.50); %Basophils 0.1 % (0.0-1.0); %Lymphocytes 35.8 % (21.0-51.0); %Monocytes 7.6 % (0.0-10.0); %Neutrophils 51.5 % (42.0-75.0); Hemoglobin 12.3 g/dL (12.0-16.0); Mean Corpuscular HGB CONC 32.9 g/dL (32.0-36.0); Mean Corpuscular Hemoglobin 27.6 pg (27.0-31.0); Mean Corpuscular Volume 83.8 fL (78.0-98.0); Mean Platelet Volume 8.5 fL (7.4-10.4); Platelet Count 167 thou/uL (130-400); RBC Distribution Width 14.3 % (11.5-14.5); Red Blood Cell (RBC) Count 4.47 mill/uL (4.20-5.40); White Blood Cell (WBC) Count 6.2 thou/uL (4.8-10.8)
[2019-07-27] MEDS: Levothyroxine Sodium 50 MCG TAB PO SCH (05:43)
[2019-07-27 06:18] LABS: Anion Gap 14 mmol/L (10-20); BUN (Urea Nitrogen) 6 mg/dL (9.8-20.1); Calc. Creatinine Clearance 105 mL/min (70-130); Calcium 9.2 mg/dL (7.8-10.44); Carbon Dioxide 26 mmol/L (23-31); Chloride 103 mmol/L (98-107); Estimated GFR-MDRD 75; Glucose 107 mg/dL (83-110); Potassium 3.8 mmol/L (3.5-5.1); Sodium 139 mmol/L (136-145)
[2019-07-27] MEDS: clonazePAM 1 MG TAB PO SCH (09:46)
[2019-07-27] MEDS: Loratadine/Pseudoephedrine 10/240 mg Tablet PO SCH (09:46)
[2019-07-27] MEDS: lamoTRIgine 100 MG TAB PO SCH (09:46)
[2019-07-27] MEDS: Gabapentin 300 MG CAP PO SCH (09:46)
[2019-07-27] MEDS: Famotidine 20 MG TAB PO SCH (09:46)
[2019-07-27] MEDS: busPIRone HCl 5 MG TAB PO SCH (09:46)
[2019-07-27] MEDS: Lubiprostone 24 MCG CAP PO SCH ×2 (09:46→17:49)
[2019-07-27] MEDS: Neomycin-Polymyxin-Hc 7.5 ML BOT L EYE SCH ×2 (09:47→17:46)
[2019-07-27] MEDS: Ondansetron ODT 4 MG TAB PO PRN (09:47)
[2019-07-27] MEDS: Triamcinolone 0.1% Cream 15 GM TUBE TOP SCH (09:50)
[2019-07-27] MEDS: Acetaminophen/Codeine 30-300mg Tablet PO PRN (12:47)
[2019-07-27 17:06] VITALS: BP 123/82; TEMP 97.3
--- NOTE | 2019-07-27 22:47 | DIS ---
DATE OF ADMISSION: 07/25/2019 DATE OF DISCHARGE: 07/27/2019 DISCHARGE DIAGNOSES: 1. Hypotension, suspect multifactorial secondary to dehydration and polypharmacy, improved. 2. Acute kidney. Injury, improving. 3. Diabetes mellitus type 2. 4. Depression. 5. Recent left knee replacement. 6. Marked functional decline. 7. Insomnia. PHYSICAL EXAMINATION: VITAL SIGNS: Blood pressure 123/82, temperature 97.3, pulse 82, respirations 20, oxygen saturation 93%. GENERAL: The patient is alert, awake, and oriented, in no distress. HEENT: Conjunctiva normal. Oral mucosa moist. NECK: Supple. No JVD. No lymphadenopathy. CHEST: Normal vesicular breathing. HEART: Sounds normal. ABDOMEN: Soft. EXTREMITIES: Negative edema of feet. Left knee incision site clean. LABORATORY DATA: On 07/27/2019, white blood cell 6.2, hemoglobin 12.3, platelets 167. BMP unremarkable. Blood glucose 106. Calcium 9.2. Chest x-ray and CT chest negative for acute findings. DVT study negative for DVT. HOSPITAL SUMMARY: Patient, Kamari Luevano, was admitted on 07/25/2019 with complaints of generalized weakness, lethargy, and hypotension. The patient also had CELINE. The patient treated with IV fluids. The patient responded well. Her blood pressure symptoms improved. The patient also evaluated by Physical Therapy and recommended outpatient physical therapy. No evidence of sepsis. Blood cultures were negative. The patient currently stable at her baseline. Also says she has insomnia. The patient was given melatonin last night which did help to sleep. The patient has melatonin and medications at home. I advised to continue and to follow up with the PCP. Plan discussed the patient, , and nursing staff. Job ID: [id number]
== END 2019-07-27 18:11 | disposition home or self-care (01) | DRG 315 ==
LOC: ERS 11:38 → T4-B 13:56
PROVIDERS: ADMIT Family Medicine; ATTEND Family Medicine
DX: I95.89 Other hypotension (principal); N17.9 Acute kidney failure, unspecified; E87.2 Acidosis; I95.2 Hypotension due to drugs; E86.0 Dehydration; F32.9 Major depressive disorder, single episode, unspecified; E11.42 Type 2 diabetes mellitus with diabetic polyneuropathy; E03.9 Hypothyroidism, unspecified; Z96.652 Presence of left artificial knee joint; F41.9 Anxiety disorder, unspecified; T50.995A Adverse effect of other drugs, medicaments and biological substances, initial encounter; G47.00 Insomnia, unspecified; G20 Parkinson's disease; Z90.49 Acquired absence of other specified parts of digestive tract; Z88.0 Allergy status to penicillin; Z88.2 Allergy status to sulfonamides; Z88.8 Allergy status to other drugs, medicaments and biological substances; I10 Essential (primary) hypertension
CPT/HCPCS: 36415; 36416; 71045; 71275; 80048; 80053; 82550; 83605; 84484; 85007; 85025; 85027; 86850; 86900; 86901; 87040; 93005; 94760; 96361; 96374; J0171; Q0162; Q9966